=== PATIENT | male | born 1975 | race Caucasian/White ===

== ENCOUNTER 2020-10-19 11:28 | Inpatient (IN) | payer OTHER ==
[~2020-10-19] VITALS: Ht 175.3 cm; Wt 95.0 kg
[2020-10-19] MEDS ORDERED: ZOLPIDEM TARTRATE 5 MG TABLET PO PRN (12:45)
[2020-10-19] MEDS ORDERED: ACETAMINOPHEN 325 MG TABLET PO PRN (12:45)
[2020-10-19] MEDS ORDERED: LORazepam 2 MG/ML VIAL IVP PRN (12:45)
[2020-10-19] MEDS ORDERED: MAGNESIUM HYDROXIDE SUSPENSION 30 ML UDCUP PO PRN (12:45)
[2020-10-19 12:56] LABS: BASOPHILS % (AUTO) 0.4 % (0.0-2.0); EOSINOPHILS % (AUTO) 1.3 % (1.0-6.0); HEMATOCRIT 39.5 % (41-53); HEMOGLOBIN 13.2 g/dL (13.5-17.5); LYMPHOCYTES # (AUTO) 1.2 K/uL (1.0-4.8); LYMPHOCYTES % (AUTO) 12.9 % (22.0-44.0); MEAN CORPUSCULAR HEMOGLOBIN 29.2 pg (26.0-34.0); MEAN CORPUSCULAR HGB CONC 33.3 G/dL (31.0-37.0); MEAN CORPUSCULAR VOLUME 88 fL (80-100); MONOCYTES # (AUTO) 0.5 K/uL (0.1-1.0); MONOCYTES % (AUTO) 5.2 % (2.0-9.0); NEUTROPHILS # (AUTO) 7.5 K/uL (1.8-7.7); NEUTROPHILS % (AUTO) 80.2 % (40.0-70.0); PLATELET COUNT (AUTO) 137 K/uL (150-450); RED CELL DISTRIBUTION WIDTH 13.6 % (11.5-14.5)
[2020-10-19 13:04] LABS: ANION GAP 11 mmol/L (8-16); CALCIUM, TOTAL 9.4 mg/dL (8.8-10.5); CARBON DIOXIDE 24 mmol/L (22-29); CHLORIDE 103 mmol/L (98-107); CREATININE 0.78 mg/dL (0.60-1.30); GLOMERULAR FILTR. RATE CALC > 60 mL/min (>60); GLUCOSE,RANDOM 109 mg/dL (70-110); POTASSIUM 4.2 mmol/L (3.5-5.1); SODIUM SERUM 138 mmol/L (136-145); UREA NITROGEN, BLOOD 12 mg/dL (7-18)
[2020-10-19 13:10] LABS: ALANINE AMINOTRANSFERASE 43 U/L (12-78); ALKALINE PHOSPHATASE 79 U/L (46-116); ASPARTATE AMINOTRANSFERASE 32 U/L (15-37); BILIRUBIN,TOTAL 0.5 mg/dL (0.1-1.0); TOTAL PROTEIN, SERUM 8.6 g/dL (6.4-8.2)
[2020-10-19 13:59] LABS: COVID AG,FIA SOURCE NASOPHARYNGEAL
[2020-10-19 15:20] VITALS: BP 110/66
[2020-10-19] MEDS: ONDANSETRON HCL 4 MG/2 ML VIAL IVP PRN (15:57)
[2020-10-19 20:00] VITALS: BP 102/68
[2020-10-19] MEDS: FAMOTIDINE 20 MG TABLET PO SCH (20:05)
[2020-10-19 23:32] VITALS: BP 117/69
[2020-10-20 04:00] VITALS: BP 100/69
[2020-10-20 07:45] VITALS: BP 96/63
[2020-10-20] MEDS: FAMOTIDINE 20 MG TABLET PO SCH ×2 (08:00→20:31)
[2020-10-20] MEDS: ONDANSETRON HCL 4 MG/2 ML VIAL IVP PRN (09:07)
[2020-10-20 20:20] VITALS: BP 117/83
[2020-10-21 05:26] VITALS: BP 123/77
[2020-10-21] MEDS: ONDANSETRON HCL 4 MG/2 ML VIAL IVP PRN ×2 (07:57→19:42)
[2020-10-21] MEDS: FAMOTIDINE 20 MG TABLET PO SCH ×2 (07:57→19:37)
[2020-10-21 08:08] VITALS: BP 111/73
[2020-10-21 20:48] VITALS: BP 122/76
[2020-10-22] VITALS: BP 110/72
[2020-10-22] MEDS: FAMOTIDINE 20 MG TABLET PO SCH (00:01)
[2020-10-22 04:54] VITALS: BP 112/71
[2020-10-22 07:47] VITALS: BP 113/65
== END 2020-10-22 16:09 | DRG 897 ==
LOC: EMS 11:39 → EDBD 11:39 → 6S 14:39
PROVIDERS: ADMIT Internal Medicine; ATTEND Internal Medicine
DX: F11.13 Opioid abuse with withdrawal (principal); D69.6 Thrombocytopenia, unspecified; F15.10 Other stimulant abuse, uncomplicated; F19.10 Other psychoactive substance abuse, uncomplicated; B18.2 Chronic viral hepatitis C; Z20.822 Contact with and (suspected) exposure to COVID-19
CPT/HCPCS: 80053; 85025; 87426; 99285; J2405